=== PATIENT | female | born 1995 | race African-American/Black ===

== ENCOUNTER 2017-06-22 20:28 | Emergency (ER) | payer BC, OTHER ==
[2017-06-22 20:39] VITALS: BP 110/56
--- NOTE | 2017-06-22 20:48 | UC ---
Eye Complaint HPI - HPI Summary HPI Summary: Pt presents to the [facility] with mom. Pt works at [employer] in [place]. Pt works overnight - this morning develop erythema to left eye. Since this time , progressive erythema, white discharge and burning to left eye. pt has started to develop itching to right eye. Pt denies vision changes. pt does not wear corrective lenses. no known contacts to others with similar sx. Pt's medications reviewed at this visit - History of Current Complaint Chief Complaint: UCEye Stated Complaint: EYE IRRITATION Time Seen by Provider: 06/22/17 20:32 Hx Obtained From: Patient Hx Last Menstrual Period: 02/23/17--NEXPLANON Onset/Duration: Gradual Onset Timing: Constant Severity Initially: Mild Severity Currently: Moderate Location of Injury: Conjunctiva Aggravating Factor(s): Nothing Alleviating Factor(s): Nothing Associated Signs And Symptoms: Positive: Negative - Allergies/Home Medications Allergies/Adverse Reactions: Allergies Allergy/AdvReac Type Severity Reaction Status Date / Time Cefixime [From Suprax] Allergy Intermediate Hives Verified 06/22/17 20:39 Penicillins Allergy Intermediate Hives Verified 06/22/17 20:39 Sodium Benzoate [From Suprax] Allergy Intermediate Hives Verified 06/22/17 20:39 Iodine Allergy Anaphylatic Verified 06/22/17 20:39 Shock Shellfish Allergy Allergy Anaphylatic Verified 06/22/17 20:39 Shock Tree Nuts Allergy Anaphylatic Verified 06/22/17 20:39 Shock Home Medications: Home Medications Diphenhydramine HCl [Benadryl Allergy 25 MG CAP] 25 mg PO DAILY PRN 06/22/17 [ History Confirmed 06/22/17] Epinephrine [Epipen 2-Gus] 0.3 mg IM ONCE PRN 06/22/17 [History Confirmed ] Etonogestrel [Nexplanon] 68 mg IMPLANT ONCE 06/22/17 [History Confirmed 06/22/17 ] PMH/Surg Hx/FS Hx/Imm Hx Previously Healthy: Yes - Surgical History Surgical History: Yes Surgery Procedure, Year, and Place: hiatial hernia repair, hernia repair,Zach procedure as young. GERD surgery - Family History Known Family History: Positive: Hypertension - Social History Occupation: Employed Full-time Lives: With Family Alcohol Use: Occasionally Substance Use Type: None Smoking Status (MU): Never Smoked Tobacco - Immunization History Vaccination Up to Date: Yes Review of Systems Constitutional: Negative Skin: Negative Eyes: Drainage, Eye Redness ENT: Negative Respiratory: Negative Cardiovascular: Negative Gastrointestinal: Negative Genitourinary: Negative Motor: Negative Neurovascular: Negative Musculoskeletal: Negative Neurological: Negative Psychological: Negative All Other Systems Reviewed And Are Negative: Yes Physical Exam Triage Information Reviewed: Yes Appearance: Well-Appearing, No Pain Distress, Well-Nourished Vital Signs: Initial Vital Signs Temp 98.3 F 06/22/17 20:33 Pulse 81 06/22/17 20:33 Resp 20 06/22/17 20:33 BP 110/56 06/22/17 20:33 Pulse Ox 100 06/22/17 20:33 Eyes: Positive: Conjunctiva Inflamed, Discharge, Other: - ELLIE, EOM intact and full left eye + injected, conjunctiva inflammed + crust dried d/c on lower lid mild edema upper lip right eye - minimal injection no photophobia visual acuity reviewed ENT Exam: Normal ENT: Positive: Normal ENT inspection, Hearing grossly normal, Pharynx normal Dental Exam: Normal Neck exam: Normal Neck: Positive: Supple, Nontender Respiratory Exam: Normal Respiratory: Positive: Chest non-tender, Lungs clear, Normal breath sounds, No respiratory distress, No accessory muscle use Cardiovascular Exam: Normal Cardiovascular: Positive: RRR, No Murmur Musculoskeletal Exam: Normal Neurological Exam: Normal Psychological Exam: Normal Skin Exam: Normal Eye Complaint Course/Dx - Course Course Of Treatment: Pt presents with erythema, discharge, burning and itching to left eye progressive today. No corrective lenses. exam c/w conjunctivitis. polytrim. work note. d/w pt regarding contagious nature of infection, wound care and hygeine. Pt in agreement with plan - Differential Dx/Diagnosis Provider Diagnoses: conjunctivitis Discharge - Discharge Plan Condition: Stable Disposition: HOME Prescriptions: Polymyx/Trimethoprim OPTH* [Polytrim OPHTH*] 1 drop BOTH EYES TID #1 btl Patient Education Materials: Conjunctivitis (ED) Forms: *Work Release Referrals: Booker RANDLE,Chevy [Primary Care Provider] - Additional Instructions: - Apply eye drops - 1 drop 3 times a day for 5 days - This is very contagious - wash your hands thoroughly between eye drop application and frequently - do not touch the tip of the bottle to your eye - if your eye is sticky - use a wet, warm washcloth to soften the mucous - Contact your doctor or return with questions or concerns
[2017-06-22] MEDS ORDERED: Polymyx/Trimethoprim OPTH* 10 ML BTL BOTH EYES ONE (20:56)
== END 2017-06-22 21:16 | disposition home or self-care (01) ==
LOC: UCCORT 20:28
DX: H10.33 Unspecified acute conjunctivitis, bilateral (principal); Z88.0 Allergy status to penicillin
CPT/HCPCS: 99212; G0463

== ENCOUNTER 2017-07-31 18:42 | Emergency (ER) | payer BC ==
[2017-07-31 18:54] VITALS: BP 99/59
--- NOTE | 2017-07-31 19:33 | UC ---
Abdominal Pain Female HPI - HPI Summary HPI Summary: TWO WEEKS OF DIFFUSE ABDOMINAL PAIN. NAUSEA VOMITING AND DIARRHEA OF THREE DAYS. NO FEVER. - History of Current Complaint Chief Complaint: UCAbdominalPain Stated Complaint: ABD PAIN Time Seen by Provider: 07/31/17 19:07 Hx Obtained From: Patient Hx Last Menstrual Period: has nexplanon Onset/Duration: Gradual Onset, Lasting Weeks, Worse Since - 3 DAYS Severity Initially: Moderate Severity Currently: Mild Pain Intensity: 1 Pain Scale Used: 0-10 Numeric Location: Diffuse Character: Colicy, Dull Aggravating Factor(s): Nothing, Food Alleviating Factor(s): Bowel Movement, Spontaneous Resolution Associated Signs and Symptoms: Positive: Nausea, Diarrhea. Negative: Diaphoresis, Fever, Cough, Back Pain, Constipation, Blood in Stool, Urinary Symptoms, Decreased Appetite, Vaginal Bleeding, Vaginal Discharge Allergies/Adverse Reactions: Allergies Allergy/AdvReac Type Severity Reaction Status Date / Time Cefixime [From Suprax] Allergy Intermediate Hives Verified 07/31/17 18:54 Penicillins Allergy Intermediate Hives Verified 07/31/17 18:54 Sodium Benzoate [From Suprax] Allergy Intermediate Hives Verified 07/31/17 18:54 Iodine Allergy Anaphylatic Verified 07/31/17 18:54 Shock Shellfish Allergy Allergy Anaphylatic Verified 07/31/17 18:54 Shock Tree Nuts Allergy Anaphylatic Verified 07/31/17 18:54 Shock PMH/Surg Hx/FS Hx/Imm Hx Previously Healthy: Yes - Surgical History Surgical History: Yes Surgery Procedure, Year, and Place: hiatial hernia repair, hernia repair,Zach procedure as young. GERD surgery - Family History Known Family History: Positive: Hypertension - Social History Occupation: Employed Full-time Lives: With Family Alcohol Use: None Substance Use Type: None Smoking Status (MU): Never Smoked Tobacco - Immunization History Vaccination Up to Date: Yes Review of Systems Constitutional: Negative Skin: Negative Eyes: Negative ENT: Negative Respiratory: Negative Cardiovascular: Negative Gastrointestinal: Abdominal Pain, Vomiting, Diarrhea, Nausea Genitourinary: Negative Motor: Negative Neurovascular: Negative Musculoskeletal: Negative Neurological: Negative Psychological: Negative Is Patient Immunocompromised?: No All Other Systems Reviewed And Are Negative: Yes Physical Exam Triage Information Reviewed: Yes Appearance: Well-Appearing, No Pain Distress, Well-Nourished, Thin Vital Signs: Initial Vital Signs Temp 99.1 F 07/31/17 18:48 Pulse 78 07/31/17 18:48 Resp 17 07/31/17 18:48 BP 99/59 07/31/17 18:48 Pulse Ox 100 07/31/17 18:48 Vital Signs Reviewed: Yes Eye Exam: Normal ENT Exam: Normal ENT: Positive: Normal ENT inspection, Hearing grossly normal, Pharynx normal, TMs normal Dental Exam: Normal Neck exam: Normal Neck: Positive: Supple, Nontender, No Lymphadenopathy Respiratory Exam: Normal Respiratory: Positive: Chest non-tender, Lungs clear, Normal breath sounds, No respiratory distress, No accessory muscle use Cardiovascular Exam: Normal Cardiovascular: Positive: RRR, No Murmur, Pulses Normal Abdominal Exam: Normal Abdomen Description: Positive: Nontender, No Organomegaly, Soft. Negative: CVA Tenderness (R), CVA Tenderness (L), Distended, Guarding, McBurney's Point Tenderness Bowel Sounds: Positive: Hyperactive Musculoskeletal Exam: Normal Neurological Exam: Normal Psychological Exam: Normal Skin Exam: Normal Abd Pain Female Course/Dx - Differential Dx/Diagnosis Differential Diagnosis: Appendicitis, Constipation, Diverticulitis, Pancreatitis , Pelvic Inflammatory Disease, , Urinary Tract Infection Provider Diagnoses: GASTROENTERITIS Discharge - Discharge Plan Condition: Stable Disposition: HOME Patient Education Materials: Clear Liquid Diet (ED), Acute Diarrhea (ED), Abdominal Pain (ED) Forms: *Work Release Referrals: Booker RANDLE,Chevy [Primary Care Provider] - Additional Instructions: CLEAR LIQUID DIET FOR 24HOURS; THEN ADVANCE TO B.R.A.T. DIET (BANANAS, RICE, APPLESAUCE, TOAST) UNTIL SYMPTOMS RESOLVE, SLOWLY ADVANCING NORMAL FOODS.
== END 2017-07-31 19:25 | disposition home or self-care (01) ==
LOC: UCCORT 18:42
DX: K52.9 Noninfective gastroenteritis and colitis, unspecified (principal); Z32.02 Encounter for pregnancy test, result negative; Z88.0 Allergy status to penicillin; Z88.8 Allergy status to other drugs, medicaments and biological substances
CPT/HCPCS: 81003; 84702; 99211; G0463

== ENCOUNTER 2017-10-23 13:17 | Emergency (ER) | payer SELFPAY ==
[2017-10-23 13:37] VITALS: BP 120/63
--- NOTE | 2017-10-23 15:17 | UC ---
Skin Complaint HPI - HPI Summary HPI Summary: 22 year old female with abscess above right eye, on eyebrow line, patient with alopecia of eyebrows, uses glued on eyebrows, near medial most part of eyebrow x 24 hours has had increased redness, pain, swelling. no difficulty moving eye , no visual changes, tener to touch, no fever, chills, feelin ill. + h/o MRSA in past. no other medical problems. - History of Current Complaint Chief Complaint: UCSkin Time Seen by Provider: 10/23/17 15:15 Stated Complaint: SKIN COMPLAINT Hx Obtained From: Patient Hx Last Menstrual Period: has nexplanon Onset/Duration: Sudden Onset, Lasting Hours Onset Severity: Mild Current Severity: Moderate - Allergy/Home Medications Allergies/Adverse Reactions: Allergies Allergy/AdvReac Type Severity Reaction Status Date / Time Cefixime [From Suprax] Allergy Intermediate Hives Verified 10/23/17 13:31 Penicillins Allergy Intermediate Hives Verified 10/23/17 13:31 Sodium Benzoate [From Suprax] Allergy Intermediate Hives Verified 10/23/17 13:31 Iodine Allergy Anaphylatic Verified 10/23/17 13:31 Shock Shellfish Allergy Allergy Anaphylatic Verified 10/23/17 13:31 Shock Tree Nuts Allergy Anaphylatic Verified 10/23/17 13:31 Shock Review of Systems Constitutional: Negative Skin: Rash Musculoskeletal: Edema Is Patient Immunocompromised?: No All Other Systems Reviewed And Are Negative: Yes PMH/Surg Hx/FS Hx/Imm Hx Previously Healthy: No - h/o MRSA - Surgical History Surgical History: Yes Surgery Procedure, Year, and Place: hiatial hernia repair, hernia repair,Zach procedure as young. GERD surgery - Family History Known Family History: Positive: Hypertension - Social History Alcohol Use: None Substance Use Type: None Smoking Status (MU): Never Smoked Tobacco - Immunization History Most Recent Influenza Vaccination: 2017 Vaccination Up to Date: Yes Physical Exam Triage Information Reviewed: Yes Appearance: Well-Appearing, No Pain Distress, Well-Nourished Vital Signs: Initial Vital Signs Temp 97.5 F 10/23/17 13:31 Pulse 103 10/23/17 13:31 Resp 16 10/23/17 13:31 BP 120/63 10/23/17 13:31 Pulse Ox 100 10/23/17 13:31 Vital Signs Reviewed: Yes Eyes: Positive: Conjunctiva Clear, Other: - no fluctuant mass palpable. ENT: Positive: Hearing grossly normal, Pharynx normal Skin: Positive: Other - ~1cm area of erythemat and induration, tender to plapation over right medial eyebrow, no drainage, no head noted, + mild warmth, no streaking, orbits intact, non-tender, no extension into eyelids or canthus Course/Dx - Course Course Of Treatment: small abscess R eyebrow. Patient advised to stop glueing eyebrows to skin while healing, abx given, unable to I&D due to no fluctant mass palpable. f/u within 48 hours if no improvement or go to ER if eye involvement, fever, worsening, pt in agreement. - Differential Diagnoses - Skin Complaint Differential Diagnoses: Abscess - Diagnoses Provider Diagnoses: abscess right eyebrow Discharge - Discharge Plan Condition: Good Disposition: HOME Prescriptions: Sulfamethox/Trimethoprim DS* [Bactrim DS 800/160 TAB*] 1 tab PO BID #20 tab Patient Education Materials: Cellulitis (ED) Referrals: Bev Maciel MD [Primary Care Provider] - Additional Instructions: - Cellulitis above right eye- MONITOR closely, if appears to be spreading, becoming more painful, any eye involvement go to ER for further evaluation - Antibiotics as directed - Follow up with primary physician within 2-3 days for re-evaluation - Increase fluid intake - Warm compresses for at least 20 minutes 5-10 times a day
== END 2017-10-23 15:44 | disposition home or self-care (01) ==
LOC: UCCORT 13:17
DX: L02.01 Cutaneous abscess of face (principal); L65.9 Nonscarring hair loss, unspecified; Z86.14 Personal history of Methicillin resistant Staphylococcus aureus infection; Z88.0 Allergy status to penicillin; Z88.8 Allergy status to other drugs, medicaments and biological substances
CPT/HCPCS: 99212; G0463

== ENCOUNTER 2018-04-20 08:13 | Emergency (ER) | payer SELFPAY ==
[2018-04-20 08:28] VITALS: BP 114/74
--- NOTE | 2018-04-20 08:37 | UC ---
UC General HPI - HPI Summary HPI Summary: Chief comes to the urgent care this morning with initial chief complaint of bug bites on her right arm and leg. She states the has been present for couple days and that getting better they itch but don't hurt. Upon further investigation it was discovered the patient has been sleeping poorly. She has an occasion where she wakes up with a burning sensation in her throat and spits up very small amount of blood. She also states she's been sleeping very poorly. She endorses anxiety denies depression homicidality or suicidality. Patient has been unemployed for 4 months patient currently does not have health insurance. - History of Current Complaint Hx Obtained From: Patient Hx Last Menstrual Period: Nexplanon Onset/Duration: Gradual Onset, Lasting Weeks, Still Present Timing: Constant Current Severity: None Pain Intensity: 0 Pain Location at: Abdomen pain that radiates in to her throat, <Arcelia Long - Last Filed: 04/20/18 09:15> <Delmis Aleman - Last Filed: 04/20/18 13:09> - History of Current Complaint Chief Complaint: UCGeneralIllness Stated Complaint: SKIN COMPLAINT Time Seen by Provider: 04/20/18 08:32 - Allergy/Home Medications Allergies/Adverse Reactions: Allergies Allergy/AdvReac Type Severity Reaction Status Date / Time iodine Allergy Severe Anaphylatic Verified 04/20/18 08:29 Shock shellfish derived Allergy Severe Anaphylatic Verified 04/20/18 08:29 Shock tree nut Allergy Severe Anaphylatic Verified 04/20/18 08:29 Shock Penicillins Allergy Intermediate Hives Verified 04/20/18 08:29 Tree Nuts Allergy Anaphylatic Verified 04/20/18 08:29 Shock PMH/Surg Hx/FS Hx/Imm Hx Previously Healthy: No GI/ History: Gastroesophageal Reflux Psychological History: Anxiety - Surgical History Surgical History: Yes Surgery Procedure, Year, and Place: hiatial hernia repair, hernia repair,Zach procedure as young. GERD surgery - Family History Known Family History: Positive: Hypertension - Social History Occupation: Unemployed Lives: With Family Alcohol Use: None Substance Use Type: None Smoking Status (MU): Never Smoked Tobacco - Immunization History Most Recent Influenza Vaccination: 2017 Vaccination Up to Date: Yes <Arcelia Long - Last Filed: 04/20/18 09:15> Review of Systems Constitutional: Negative Skin: Other - 2 bug bites on right forearm and right upper leg Eyes: Negative ENT: Negative Respiratory: Negative Cardiovascular: Other - subjective sensation of tachycardia at rest Gastrointestinal: Negative Genitourinary: Negative Motor: Negative Neurovascular: Negative Musculoskeletal: Negative Neurological: Negative Psychological: Negative Is Patient Immunocompromised?: No All Other Systems Reviewed And Are Negative: Yes <Arcelia Long - Last Filed: 04/20/18 09:15> Physical Exam Triage Information Reviewed: Yes Appearance: Well-Appearing, No Pain Distress, Well-Nourished Vital Signs: Initial Vital Signs Temp 98.5 F 04/20/18 08:22 Pulse 92 04/20/18 08:22 Resp 18 04/20/18 08:22 BP 114/74 04/20/18 08:22 Pulse Ox 99 04/20/18 08:22 Vital Signs Reviewed: Yes Eye Exam: Normal Eyes: Positive: Conjunctiva Clear ENT Exam: Normal ENT: Positive: Normal ENT inspection, Hearing grossly normal, Pharynx normal, TMs normal. Negative: Nasal congestion, Nasal drainage, Trismus, Muffled voice , Hoarse voice, Dental tenderness, Sinus tenderness, Uvula midline Dental Exam: Normal Neck exam: Normal Neck: Positive: Supple, Nontender, No Lymphadenopathy Respiratory Exam: Normal Respiratory: Positive: Chest non-tender, Lungs clear, Normal breath sounds, No respiratory distress, No accessory muscle use Cardiovascular Exam: Normal Cardiovascular: Positive: RRR, No Murmur, Pulses Normal, Brisk Capillary Refill Abdominal Exam: Normal Abdomen Description: Positive: Nontender, No Organomegaly, Soft. Negative: CVA Tenderness (R), CVA Tenderness (L) Bowel Sounds: Positive: Present Musculoskeletal Exam: Normal Musculoskeletal: Positive: Strength Intact, ROM Intact, No Edema Neurological Exam: Normal Neurological: Positive: Alert, Muscle Tone Normal Psychological Exam: Normal Skin Exam: Other Skin: Positive: Other - macular erythema right arm and leg 2 discrete spots on each <Arcelia Long - Last Filed: 04/20/18 09:15> Vital Signs: Initial Vital Signs Temp 98.5 F 04/20/18 08:22 Pulse 92 04/20/18 08:22 Resp 18 04/20/18 08:22 BP 114/74 04/20/18 08:22 Pulse Ox 99 04/20/18 08:22 <Delmis Aleman - Last Filed: 04/20/18 13:09> Course/Dx - Course Course Of Treatment: emothional support, [facility]--also information regarding [facility] for assistance with health insurance will rx with prilosec and vistaril - Differential Dx - Multi-Symptom Provider Diagnoses: insect bite, anxiety, acid reflux <Arcelia Long - Last Filed: 04/20/18 09:15> Discharge - Sign-Out/Discharge Documenting (check all that apply): Discharge/Admit/Transfer - Billing Disposition and Condition Condition: STABLE Disposition: HOME <Arcelia Long - Last Filed: 04/20/18 09:15> - Billing Disposition and Condition Condition: STABLE Disposition: HOME <Delmis Aleman - Last Filed: 04/20/18 13:09> - Discharge Plan Condition: Stable Disposition: HOME Prescriptions: hydrOXYzine pamoate [Vistaril] 25 - 50 mg PO Q8HR PRN #20 capsule PRN Reason: Anxiety Omeprazole CAP* [Prilosec CAP* 20 MG] 20 mg PO BEDTIME #14 cap.dr Patient Education Materials: Diet for Stomach Ulcers and Gastritis (ED), Gastroesophageal Reflux Disease (ED), Anxiety (ED) Referrals: [facility] [Outside] - As Soon As Possible (so we can help you get health insurance) [facility] [Outside] Bev Maciel MD [Primary Care Provider] - Attestation Statement User Type: Provider - I was available for consult. This patient was seen by the FRANNIE. The patient was not presented to, seen by, or examined by me. -Mari <Delmis Aleman - Last Filed: 04/20/18 13:09>
== END 2018-04-20 09:20 | disposition home or self-care (01) ==
LOC: UCCORT 08:13
DX: S40.861A Insect bite (nonvenomous) of right upper arm, initial encounter (principal); S70.361A Insect bite (nonvenomous), right thigh, initial encounter; K21.9 Gastro-esophageal reflux disease without esophagitis; F32.9 Major depressive disorder, single episode, unspecified; Z88.8 Allergy status to other drugs, medicaments and biological substances; Z91.018 Allergy to other foods; Z88.0 Allergy status to penicillin; Z91.013 Allergy to seafood; Z98.890 Other specified postprocedural states; W57.XXXA Bitten or stung by nonvenomous insect and other nonvenomous arthropods, initial encounter; Y92.9 Unspecified place or not applicable
CPT/HCPCS: 99212; G0463

== ENCOUNTER 2019-06-27 12:29 | Emergency (ER) | payer SELFPAY ==
[2019-06-27] MEDS ORDERED: NS 0.9% 1000 ML** 1,000 ML IV ONE (12:35)
[2019-06-27] MEDS ORDERED: diPHENhydraMINE IV* 50 MG/ML 1 ml VIAL (BENADRYL) IV ONE (12:35)
[2019-06-27] MEDS ORDERED: methylPREDNISolone 125 MG* 2 ML VIAL IV ONE (12:35)
[2019-06-27] MEDS ORDERED: Famotidine TAB* 20 MG PO ONE (12:36)
--- NOTE | 2019-06-27 12:42 | UC ---
UC General HPI - HPI Summary HPI Summary: 23 yo female c/o throat tightening, facial redness, pruritus s/p eating sauce with fish in it (unbeknownst to her). 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 Did not take anything, since works within short walking distance, she just came straight here. Has epipen but aug 2018. Has BCP implant , lmp approx 2 yrs ago. - History of Current Complaint Stated Complaint: ALLERGIC REACTION Time Seen by Provider: 06/27/19 12:34 Hx Obtained From: Patient Hx Last Menstrual Period: Nexplanon - Allergy/Home Medications Allergies/Adverse Reactions: Allergies Allergy/AdvReac Type Severity Reaction Status Date / Time iodine Allergy Severe Anaphylatic Verified 06/27/19 12:35 Shock shellfish derived Allergy Severe Anaphylatic Verified 06/27/19 12:35 Shock tree nut Allergy Severe Anaphylatic Verified 06/27/19 12:35 Shock Penicillins Allergy Intermediate Hives Verified 06/27/19 12:35 cefixime [From Suprax] Allergy Hives Verified 06/27/19 12:35 Tree Nuts Allergy Anaphylatic Verified 06/27/19 12:35 Shock PMH/Surg Hx/FS Hx/Imm Hx Previously Healthy: Yes - Surgical History Surgical History: Yes Surgery Procedure, Year, and Place: hiatial hernia repair, hernia repair,Zach procedure as young. GERD surgery - Family History Known Family History: Positive: Hypertension - Social History Alcohol Use: None Substance Use Type: None Smoking Status (MU): Never Smoked Tobacco - Immunization History Most Recent Influenza Vaccination: 2017 Vaccination Up to Date: Yes Review of Systems All Other Systems Reviewed And Are Negative: Yes Constitutional: Positive: Other - see hpi Skin: Positive: Other - see hpi Eyes: Positive: Negative ENT: Positive: Other - see hpi Respiratory: Positive: Negative Cardiovascular: Positive: Negative Gastrointestinal: Positive: Negative Genitourinary: Positive: Negative Motor: Positive: Negative Neurovascular: Positive: Negative Musculoskeletal: Positive: Negative Neurological: Positive: Negative Psychological: Positive: Negative Is Patient Immunocompromised?: No Physical Exam Triage Information Reviewed: Yes Appearance: Well-Nourished - sitting up in chair, conversing full sentances, appears understandably nervous Vital Signs Reviewed: Yes Eye Exam: Normal ENT Exam: Other - mmm post pharynx uvula midline, no obstruction, mild edema. no stridor no nasal drainage at initial exam Neck exam: Normal Neck: Positive: Supple, Nontender Respiratory Exam: Normal Respiratory: Positive: Chest non-tender, Lungs clear, Normal breath sounds, No respiratory distress, No accessory muscle use Cardiovascular Exam: Normal Cardiovascular: Positive: RRR, No Murmur, Pulses Normal, Brisk Capillary Refill Abdominal Exam: Normal Abdomen Description: Positive: Nontender Musculoskeletal Exam: Normal - gait steady, moves x 4 ext's Neurological Exam: Normal Psychological Exam: Normal Skin Exam: Other - nondiaphoretic. face is red, itchy. legs are itchy, dermatographia Course/Dx - Course Course Of Treatment: At onset - ordered - IV Ns x 1 L with benadryl, solumedrol, pepcid (po). 12:45 - n/v. Epipen IM 0.3ml and Zofran 4mg iv. Lungs still cta, no stridor, post pharynx unchanged. 14:00 - feels better. Conversing easily. Boyfriend here, he will drive her home. Questions as posed answered to the best of my ability. - Diagnoses Provider Diagnosis: Allergic reaction Discharge - Sign-Out/Discharge Documenting (check all that apply): Patient Departure All imaging exams completed and their final reports reviewed: No Studies - Discharge Plan Condition: Improved Disposition: HOME Prescriptions: EPINEPHrine [Epipen] 0.3 mg IJ ONCE PRN #1 auto.injct PRN Reason: Allergy Symptoms Famotidine TAB* [Pepcid 20 MG TAB*] 20 mg PO DAILY #10 tab methylPREDNISolone [Medrol Dosepak 4 MG*] 4 mg PO .SEE DIANA INSTRUCTION #1 diana Patient Education Materials: General Allergic Reaction (ED) Referrals: Bev Maciel MD [Primary Care Provider] - Additional Instructions: Hydrate. Avoid hot showers until you feel back to normal (warm or lukewarm ok). Avoid perfumes, scented soaps, etc until you feel back to normal. Hypoallergenic soap, double rinse laundry - always. Start medrol dose pack tomorrow morning if you still are itchy. Benadryl 25mg (over the counter) at least 2x / day for the next 3 days, then as needed. Pepcid 20mg once daily, while taking benadryl. Please follow up with your primary care physician, per routine. - Billing Disposition and Condition Condition: IMPROVED Disposition: Home
[2019-06-27] MEDS ORDERED: Ondansetron INJ* 2 MG/ML VIAL IV ONE (12:53)
[2019-06-27] MEDS ORDERED: EPINEPHRINE 1 MG/ML 1 ML VIAL IM ONE (12:54)
[2019-06-27 13:43] VITALS: BP 103/48
== END 2019-06-27 14:31 | disposition home or self-care (01) ==
LOC: UCCORT 12:29
DX: T78.1XXA Other adverse food reactions, not elsewhere classified, initial encounter (principal); R09.89 Other specified symptoms and signs involving the circulatory and respiratory systems; L98.9 Disorder of the skin and subcutaneous tissue, unspecified; L29.9 Pruritus, unspecified; X58.XXXA Exposure to other specified factors, initial encounter
CPT/HCPCS: 96361; 96372; 96374; 96375; 99212; A9270-GY; G0463; J1200; J2405; J2930

== ENCOUNTER 2019-08-15 11:48 | Emergency (ER) | payer MEDICAID ==
[2019-08-15] MEDS ORDERED: methylPREDNISolone 125 MG* 2 ML VIAL IV ONE (12:03)
[2019-08-15] MEDS ORDERED: Famotidine IV* 10 MG/ML 2 ML (20 mg) IV SLOW PU ONE (12:03)
[2019-08-15] MEDS ORDERED: diPHENhydraMINE IV* 50 MG/ML 1 ml VIAL (BENADRYL) IV ONE (12:03)
[2019-08-15] MEDS ORDERED: EPINEPHRINE 1 MG/ML 1 ML VIAL IM ONE (12:04)
[2019-08-15] MEDS ORDERED: NS 0.9% 1000 ML** 1,000 ML IV ONE (12:04)
--- NOTE | 2019-08-15 12:05 | UC ---
Allergic Reaction HPI - HPI Summary HPI Summary: Patient is a 24-year-old female here with an allergic reaction. 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 Patient has sensation of difficulty breathing and vomited 5 minutes ago. Patient has no rash. Patient last had anaphylaxis one month ago similar to peanuts. Patient did not use her epinephrine pen. Patient has no diarrhea or face swelling. Medications reviewed - History of Current Complaint Stated Complaint: ALLERGIC REACTION Time Seen by Provider: 08/15/19 12:02 Hx Last Menstrual Period: Nexplanon - Allergies/Home Medications Allergies/Adverse Reactions: Allergies Allergy/AdvReac Type Severity Reaction Status Date / Time iodine Allergy Severe Anaphylatic Verified 08/15/19 12:01 Shock shellfish derived Allergy Severe Anaphylatic Verified 08/15/19 12:01 Shock tree nut Allergy Severe Anaphylatic Verified 08/15/19 12:01 Shock Penicillins Allergy Intermediate Anaphylatic Verified 08/15/19 12:01 Shock cefixime [From Suprax] Allergy Anaphylatic Verified 08/15/19 12:01 Shock peanut Allergy Anaphylatic Verified 08/15/19 12:01 Shock shrimp Allergy Anaphylatic Verified 08/15/19 12:01 Shock Tree Nuts Allergy Anaphylatic Verified 08/15/19 12:01 Shock PMH/Surg Hx/FS Hx/Imm Hx Previously Healthy: Yes - Surgical History Surgical History: Yes Surgery Procedure, Year, and Place: hiatial hernia repair, hernia repair,Zach procedure as young. GERD surgery - Family History Known Family History: Positive: Hypertension, Non-Contributory - Social History Alcohol Use: None Substance Use Type: None Smoking Status (MU): Never Smoked Tobacco Type: Cigarettes Amount Used/How Often: 1 pack/2 weeks - Immunization History Most Recent Influenza Vaccination: 2017 Vaccination Up to Date: Yes Review of Systems All Other Systems Reviewed And Are Negative: Yes Constitutional: Negative: Fever Skin: Positive: Rash ENT: Negative: Sore Throat, Nasal Discharge Respiratory: Positive: Shortness Of Breath Cardiovascular: Negative: Chest Pain Gastrointestinal: Positive: Vomiting. Negative: Abdominal Pain, Diarrhea Physical Exam - Summary Physical Exam Summary: Vital Signs Reviewed: Yes A+Ox3, no distress Eyes: Conjunctiva Clear, PERRL. EOM intact and full ENT: Hearing grossly normal TM x 2 clear, moist, uvula midline, no exudate, no erythema Neck: Positive: No stridor Respiratory: Positive: No wheezing. Cardiovascular: RRR nl s1, s2 no m/r CBT <2 sec abd soft + BS nt/nd no guarding, no distension Musculoskeletal Exam: ZAMUDIO x 4 without difficulty Strength Intact, ROM Intact Neurological: Positive: Alert, + sensation throughout Psychological: Positive: Normal Response To Family Skin: no rash, no ecchymosis Allergic Reaction Course/Dx - Course Course Of Treatment: History of anaphylaxis to shrimp. Patient arrived after vomiting with trouble breathing. Patient was given 0.3 mg of IM epinephrine. An IV was established in the left hand. Patient was given 125 mg of Solu-Medrol and a liter of fluids. EMS was called and arrived for [facility] give Pepcid or Benadryl. Patient was taken emergently to [facility]. - Differential Dx/Diagnosis Provider Diagnosis: Anaphylaxis Discharge ED - Sign-Out/Discharge Documenting (check all that apply): Patient Departure All imaging exams completed and their final reports reviewed: No Studies - Discharge Plan Condition: Guarded Disposition: TRANS HIGHER LVL OF CARE FAC Referrals: Bev Maciel MD [Primary Care Provider] - - Billing Disposition and Condition Condition: GUARDED Disposition: Trans Higher Lvl of Care Fac
[2019-08-15 12:25] VITALS: BP 119/61
== END 2019-08-15 12:08 | disposition short-term general hospital (02) ==
LOC: UCCORT 11:48
DX: T78.2XXA Anaphylactic shock, unspecified, initial encounter (principal); Z91.010 Allergy to peanuts; Z91.013 Allergy to seafood; Z20.818 Contact with and (suspected) exposure to other bacterial communicable diseases; Z88.1 Allergy status to other antibiotic agents; Z91.018 Allergy to other foods; Z88.0 Allergy status to penicillin; Z91.048 Other nonmedicinal substance allergy status; F17.210 Nicotine dependence, cigarettes, uncomplicated
CPT/HCPCS: 96372; 96374; 99213; G0463; J2930